=== PATIENT | female | born 1995 | race Two or more races ===

== ENCOUNTER 2016-06-28 16:42 | Emergency (ER) | payer OTHER ==
[2016-06-28 17:44] LABS: ABSOLUTE NEUTROPHIL COUNT 5.9 K/mm3 (1.8-7.7); BASO # 0.1 K/mm3 (0.0-0.2); BASO % 0.5 % (0.2-1.0); EOS # 0.2 (0.0-0.5); EOS % 2.6 % (0.9-2.9); HEMATOCRIT 39.9 % (37.0-47.0); HEMOGLOBIN 13.8 gm/l (12.0-16.0); IMM NEUT% 0.3 % (0-1); LYMPH # 2.6 (1.0-4.8); LYMPH % 28.5 % (15-45); MEAN CELL VOLUME 93.2 fl (81.0-99.0); MEAN CORPUSCULAR HEMOGLOBIN 32.2 pg (27.0-31.0); MEAN CORPUSCULAR HGB CONC 34.6 g/dl (33.0-37.0); MEAN PLATELET VOLUME 10.3 fl (7.4-10.4); MONO # 0.4 (0.0-0.8); MONO % 4.3 % (4-12); NEUT % 63.8 % (43-75); PLATELET COUNT 253 K/mm3 (130-400); RED CELL DISTRIBUTION WIDTH 11.4 % (11.5-14.5)
[2016-06-28] MEDS ORDERED: SODIUM CHLORIDE 0.9% 1,000 ML ONE (17:53)
[2016-06-28 17:57] LABS: ALB/GLOB RATIO 1.5 (>1.0); ALBUMIN 4.2 gm/dL (3.5-5.7); CALCIUM 9.1 mg/dL (8.6-10.3)
[2016-06-28 18:39] LABS: PH,URINE 6.5 (5.0-8.0); URINE BILIRUBIN NEGATIVE (NEGATIVE); URINE BLOOD 3+ (NEGATIVE); URINE GLUCOSE (UA) NEGATIVE (NEGATIVE); URINE LEUKOCYTE ESTERASE TRACE (NEGATIVE); URINE NITRITE NEGATIVE (NEGATIVE); URINE PROTEIN TRACE (NEGATIVE); URINE UROBILINOGEN NORMAL (0-1 mg/dl)
--- NOTE | 2016-06-28 18:45 | US ---
OB COMP <14 WKS, OB TRANSVAGINAL HISTORY: First from a bleeding/viability. The patient is of unknown gestational age. COMPARISONS: None. FINDINGS: Transabdominal and transvaginal ultrasonography was performed. The uterus appears to be of normal contour. There is a mildly complex appearance of the endometrium measuring up to 14 mm in AP diameter. No intrauterine fluid collection is visualized currently however. The right ovary measures 2.5 x 1.4 x 1.9 cm. The left ovary measures 2.6 x 1.5 x 2.1 cm. There is a small low echogenicity focus seen within the left ovary measuring up to 2.1 cm which may reflect a corpus luteal cyst. A small amount of pelvic free fluid is visualized. IMPRESSION: 1. A complex heterogeneous appearance of the endometrium measuring up to 14 mm in size. No discrete intrauterine fluid collection is visible with considerations including early intrauterine or extrauterine gestations or a demise. Recommend serial beta-hCG levels and/or repeat ultrasound. 2. A small 2.1 cm low echogenicity focus within the maternal left ovary which may reflect a corpus luteal cyst. 3. A minimal amount of pelvic free fluid.
[2016-06-28 19:09] LABS: URINE APPEARANCE SL CLOUDY; URINE COLOR DARK YELLOW
[2016-06-28 19:10] LABS: URINE EPITHELIAL CELLS 0-2 /hpf; URINE WBC 0-2 /hpf
[2016-06-28 19:11] LABS: URINE BACTERIA RARE; URINE MUCUS 1+
== END 2016-06-28 16:50 | disposition home or self-care (01) ==
LOC: ED 16:42
DX: O20.0 Threatened abortion (principal); Z3A.01 Less than 8 weeks gestation of pregnancy
CPT/HCPCS: 84702; 85025; 87086; 80053; 81001; 76817; 76801; 86901; 99284; 99283; J7030